=== PATIENT | female | born 1985 | race Caucasian/White ===

== ENCOUNTER 2023-07-04 05:36 | Emergency (ER) | payer OTHER ==
[~2023-07-04] VITALS: Ht 165.1 cm; Wt 55.3 kg
[2023-07-04 05:41] VITALS: BP 134/55; PULSE 66; RESP 16
[2023-07-04] MEDS ORDERED: AMOX500C2 PO (06:19)
[2023-07-04] MEDS ORDERED: PSEU120T62 PO (06:19)
[2023-07-04] MEDS: IBUPROFEN 600 MG TABLET PO ONE (06:24)
[2023-07-04] MEDS: ACETAMINOPHEN 325 MG TAB PO ONE (06:25)
== END 2023-07-04 06:38 | disposition home or self-care (01) ==
LOC: EDH 05:36
DX: H66.93 Otitis media, unspecified, bilateral (principal); J32.9 Chronic sinusitis, unspecified; Z79.899 Other long term (current) drug therapy; Z98.890 Other specified postprocedural states

== ENCOUNTER → 2023-12-25 | Outpatient (CLI) | payer OTHER ==
[~2023-12-25] MED LIST: AMOX500C2 PO; PSEU120T62 PO
== END | disposition home or self-care (01) ==
LOC: LAB 09:03
PROVIDERS: ATTEND Hospitalist
DX: Z20.822 Contact with and (suspected) exposure to COVID-19 (principal)
CPT/HCPCS: 87426

== ENCOUNTER 2024-05-22 01:01 | Emergency (ER) | payer OTHER ==
[~2024-05-22] VITALS: Ht 167.6 cm; Wt 50.8 kg
--- NOTE | 2024-05-22 01:15 | ERN ---
ED Note History of Present Illness Stated Complaint: Patient comes in. Because she says she has had some diarrhea some body aches some fever or chills. She also reports that she has had chest pain. 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 She was seen by manager of security multiple times for this they said that they do not need a surgery or certain pill or procedure. No falls trips traumas Chief Complaint: Chest Pain Time Seen by MD: 01:03 Allergies: Coded Allergies: No Known Drug Allergies (Unverified Allergy, Unknown, 07/04/23) Home Meds Active Scripts Ondansetron (Ondansetron Odt) 4 Mg Tab.rapdis, 1 TAB PO Q6HPRN PRN for nausea/vomiting for 4 Days, #16 TAB 0 Refills Prov:HORTENSIA GUTIERREZ MD 05/22/24 Famotidine (Famotidine) 20 Mg Tablet, 1 TAB PO BID for 30 Days, #60 TAB 0 Refills Prov:HORTENSIA GUTIERREZ MD 05/22/24 Amoxicillin (Amoxicillin) 500 Mg Capsule, 500 MG PO BID for 10 Days, #20 CAP Prov:LIVIA MENARD DO 07/04/23 Pseudoephedrine HCl (Sudafed 12 Hour) 120 Mg Tablet.er, 120 MG PO BID for congestion, #20 TAB Prov:LIVIA MENARD DO 07/04/23 Past Medical History Past Medical History: No Pertinent History Surgical History: Other Surgical History Other: OPEN HEART WHEN BABY LMP: May 22, 2024 Review of System Dictation Constitutional: Body aches fevers chills Eyes: Negative for injury, pain,redness, and discharge ENT: Negative for injury,pain or swelling Cardiovascular: Negative for chest pain, palpitations, and edema Respiratory: Negative for shortness of breath, cough, and wheezing, Abdomen/GI: Negative for abdominal pain, nausea, vomiting, diarrhea, and constipation Back: Negative for injury and pain : Negative for injury, bleeding and discharge MS/Extremity: Negative for injury and deformity Skin: Negative for rash, and discoloration Neuro: Negative for headache, weakness, numbness, tingling, and seizure Psych: Negative for suicide ideation, homicidal ideation, and hallucinations Initial Vital Sign VS Vital Signs Date Time Temp Pulse Resp B/P (MAP) Pulse Ox O2 Delivery O2 Flow Rate FiO2 05/22/24 01:03 97.5 76 20 134/76 100 Room Air 05/22/24 01:16 0 21 Physical Exam Dictation General: awake, alert, NAD Head/Face: Normocephalic, atraumatic Eyes: PERRL, EOMI, vision at baseline ENT: oral cavity clear, TMs clear, no signs of infection Neck: Trachea midline, supple, no nuchal rigidity Cardiovascular: RRR, normal S1/S2, No MRGs, no JVD Respiratory: CTAB, no respiratory distress, No rales or wheezes Abdomen: Soft, non-tender, non-distended, normal bowel sounds, no guarding or rebound. Skin: Warm, dry, normal turgor, no rash MS/Extremity: Pulses equal, no cyanosis, neurovascular intact, FROM Neuro: COAx4, GCS 15, strength 5/5, CN 2-12 intact, normal cerebellar exam, normal gait, Psych: Normal behavior, mood, and affect normal NIH of 0 speak in full complete sentences. When palpating in the right upper quadrant right lower quadrant no wincing or grimacing change in facial expression Results (Laboratory/Radiology) Laboratory/Radiology Laboratory Tests Test 05/22/24 01:30 05/22/24 01:32 White Blood Count 9.0 K/uL (4.8-10.8) Red Blood Count 4.08 MIL/uL (4.00-5.50) Hemoglobin 13.7 g/dL (12.0-16.0) Hematocrit 40.2 % (36-48) Mean Corpuscular Volume 98.5 fL (79-99) Mean Corpuscular Hemoglobin 33.6 pg (27.0-33.0) H Mean Corpuscular Hemoglobin Concent 34.1 g/dL (32.0-36.0) Red Cell Distribution Width 11.8 % (11.0-15.5) Platelet Count 162 K/uL (130-400) Mean Platelet Volume 11.2 fL (7.5-10.5) H Immature Granulocyte % (Auto) 0.4 % (0-1) Neutrophils (%) (Auto) 89.5 % (40.0-77.0) H Lymphocytes (%) (Auto) 3.5 % (21.0-51.0) L Monocytes (%) (Auto) 6.1 % (3.0-13.0) Eosinophils (%) (Auto) 0.1 % (0.0-8.0) Basophils (%) (Auto) 0.4 % (0.0-5.0) Neutrophils # (Auto) 8.1 K/uL (1.8-7.7) H Lymphocytes # (Auto) 0.3 K/uL (1.0-4.8) L Monocytes # (Auto) 0.6 K/uL (0.1-1.0) Eosinophils # (Auto) 0.01 K/uL (0.00-0.70) Basophils # (Auto) 0.04 K/uL (0.00-0.20) Absolute Immature Granulocyte (auto 0.04 K/uL (0-1) Nucleated Red Blood Cells 0.0 % (0.0-0.19) White Cell Morphology Comment See comments Sodium Level 140 mmol/L (136-145) Potassium Level 3.6 mmol/L (3.5-5.1) Chloride Level 102 mmol/L (101-111) Carbon Dioxide Level 27 mmol/L (21-32) Blood Urea Nitrogen 8 mg/dL (7-18) Creatinine 0.7 mg/dL (0.5-1.0) Glomerular Filtration Rate Calc 114 mL/min (>90) Random Glucose 108 mg/dL (70-105) H Total Calcium 8.9 mg/dL (8.5-10.1) Troponin I High Sensitivity 5 ng/L (4-50) Lipase 17 U/L (16-77) Serum Test, Qualitative NEGATIVE (NEGATIVE) Influenza Type A Antigen Negative For Type A Influenza Type B Antigen Negative For Type B SARS-CoV-2 Antigen (Rapid) PRESUMPTIVE NEGATIVE ED Course ED Course Orders Procedure Category Date Status Time 12 Lead Ekg Tracing- EKG 05/22/24 Logged Technical 01:06 Cbc With Differential LAB 05/22/24 Complete 01:06 Basic Metabolic Panel LAB 05/22/24 Complete 01:06 Troponin I High LAB 05/22/24 Complete Sensitivity 01:06 Testing, LAB 05/22/24 Complete Serum Hcg 01:06 Chest 1vw RAD 05/22/24 Taken 01:06 Lactated Ringers PHA 05/22/24 Complete 1000ml (Lactated 01:30 Morphine 4mg Syg PHA 05/22/24 Complete (Morphine 4mg Syg) 01:30 Ondansetron 4mg Inj PHA 05/22/24 Complete (Zofran 4mg Inj) 01:30 Covid19 (Sars Antigen LAB 05/22/24 Complete Rapid) 01:16 Influenza Type A & B, LAB 05/22/24 Complete Rapid 01:16 Lipase LAB 05/22/24 Complete 01:06 Current Medications Medications (Trade) Dose Ordered Sig/Jaime Route PRN Reason Start Time Stop Time Status Last Admin Dose Admin Lactated Ringer's 1,000 ml @ 0 mls/hr ONCE ONCE IV 05/22/24 01:30 05/22/24 01:31 DC 05/22/24 01:21 Morphine Sulfate (morPHINE 4MG SYG) 4 mg ONCE ONCE IVP 05/22/24 01:30 05/22/24 01:31 DC Ondansetron HCl (zoFRAN 4MG INJ) 4 mg ONCE ONCE IVP 05/22/24 01:30 05/22/24 01:31 DC 05/22/24 01:21 Vital Signs Date Time Temp Pulse Resp B/P (MAP) Pulse Ox O2 Delivery O2 Flow Rate FiO2 05/22/24 01:16 65 18 118/77 100 Room Air* 0 21 05/22/24 01:03 97.5 76 20 134/76 100 Room Air Medical Decision Making MDM Told the patient the patient it was likely a viral syndrome given the diarrhea and fevers chills body aches. She said that has been going on the last day. I said we will do some labs tests imaging make sure there is no emergent or urgent about the pathology she was in agreement with this no other questions complaints concerns at this time. MDM: Differential diagnosis: Rationale: Tests considered and ordered secondary to shared decision making include: Previous outside records reviewed: Old ER visits. Risk of complication and/or morbidity or mortality of patient management: None Medications-Per medication reconciliation Need for hospitalization: Patient does not meet criteria for hospitalization. Need for emergency major/minor surgery: No There are no social concerns with this patient. Prescription drug management Prescriptions will include symptomatic care Patient's prior external medical records from other ER visits were reviewed by me as indicated. Prior testing and results from previous visits were reviewed. Prior tests were taken into account with medical decision making and resource utilization, independent historian/historians were used to obtain complete medical history. I independently interpreted the test that were performed, results were reviewed by me and considered findings on radiology if ordered. Medical management and examination interpretation discussions were had by me with other qualified healthcare professionals as indicated for the patient's c are. DX & DISP Disposition: Discharge Departure Impression: Primary Impression: Viral gastroenteritis Condition: Stable Scripts Ondansetron (Ondansetron Odt) 4 Mg Tab.rapdis 1 TAB PO Q6HPRN PRN for nausea/vomiting for 4 Days, #16 TAB 0 Refills Prov: HORTENSIA GUTIERREZ MD 05/22/24 Famotidine (Famotidine) 20 Mg Tablet 1 TAB PO BID for 30 Days, #60 TAB 0 Refills Prov: HORTENSIA GUTIERREZ MD 05/22/24 Referrals: SELF,REFERRAL (PCP) HORTENSIA GUTIERREZ MD May 22, 2024 01:15
[2024-05-22] MEDS: LACTATED RINGERS 1000ML 1,000 ML IV ONE (01:21)
[2024-05-22] MEDS: ondanSETRON 4MG INJ IVP ONE (01:21)
[2024-05-22] MEDS: morPHINE 4 MG SYG IVP ONE (01:21)
[2024-05-22 01:44] LABS: BASOPHILS # (AUTO) 0.04 K/uL (0.00-0.20); BASOPHILS % (AUTO) 0.4 % (0.0-5.0); EOSINOPHILS # (AUTO) 0.01 K/uL (0.00-0.70); EOSINOPHILS % (AUTO) 0.1 % (0.0-8.0); HEMATOCRIT 40.2 % (36-48); IMMATURE GRANULOCYTE ABSOLUTE 0.04 K/uL (0-1); LYMPHOCYTES # (AUTO) 0.3 K/uL (1.0-4.8); LYMPHOCYTES % (AUTO) 3.5 % (21.0-51.0); MEAN CORPUSCULAR HEMOGLOBIN 33.6 pg (27.0-33.0); MEAN CORPUSCULAR HGB CONC 34.1 g/dL (32.0-36.0); MEAN CORPUSCULAR VOLUME 98.5 fL (79-99); MONOCYTES # (AUTO) 0.6 K/uL (0.1-1.0); MONOCYTES % (AUTO) 6.1 % (3.0-13.0); NEUTROPHILS # (AUTO) 8.1 K/uL (1.8-7.7); NEUTROPHILS % (AUTO) 89.5 % (40.0-77.0); PLATELET COUNT (AUTO) 162 K/uL (130-400); RED BLOOD CELL COUNT(AUTO) 4.08 MIL/uL (4.00-5.50); RED CELL DISTRIBUTION WIDTH 11.8 % (11.0-15.5)
[2024-05-22 01:52] LABS: COVID19 (SARS ANTIGEN RAPID) PRESUMPTIVE NEGATIVE (NEGATIVE); INFLUENZA TYPE A Negative For Type A (NEGATIVE); INFLUENZA TYPE B Negative For Type B (NEGATIVE)
[2024-05-22 01:52] LABS: CREATININE 0.7 mg/dL (0.5-1.0); POTASSIUM 3.6 mmol/L (3.5-5.1)
[2024-05-22] MEDS ORDERED: FAMO20TA8 PO (02:19)
[2024-05-22] MEDS ORDERED: ONDA-243 PO (02:19)
[2024-05-22 02:28] VITALS: BP 119/66; PULSE 63; RESP 18; TEMP 98.1; O2SAT 99
--- NOTE | 2024-05-22 06:49 | EKG ---
[facility] Test Date: 2024-05-22 Test Time: 01:10:19 Pat Name: AFRICA ASKEW Department: ED Room: Gender: F Innersole Fitter: [id number] : 1985 Requested By: HORTENSIA GUTIERREZ Order Number: [id number] Reading MD: Harry Frances Measurements Intervals [place] Rate: 87 P: 60 FL: 99 QRS: -55 QRSD: 132 T: -13 QT: 398 QTc: 480 Interpretive Statements Sinus rhythm RBBB and LAFB No previous ECG available for comparison Electronically Signed On 05-22-2024 06:53:33 CDT by Harry Frances Please click the below link to view image of tracing.
== END 2024-05-22 02:38 | disposition home or self-care (01) ==
LOC: EDH 01:01
DX: A08.4 Viral intestinal infection, unspecified (principal); Z20.822 Contact with and (suspected) exposure to COVID-19; Z79.899 Other long term (current) drug therapy; Z98.890 Other specified postprocedural states
CPT/HCPCS: 99285; 96374; 71045; 87426; 84484; 80048; 84703; 83690; 85025; 87804 ×2; 36415; 93005; J7120; J2405; J2270